=== PATIENT | male | born 2000 | race Two or more races ===

== ENCOUNTER 2025-03-03 16:56 | Emergency (ER) | payer SELFPAY ==
[2025-03-03] MEDS: methylPREDNISolone Sodium Succinate 40 MG/1 ML SDV IM ONE (17:37)
[2025-03-03] MEDS: diphenhydrAMINE 25 MG Cap PO ONE (17:37)
== END 2025-03-03 17:47 | disposition home or self-care (01) ==
LOC: MW.ED 16:56
DX: T78.40XA Allergy, unspecified, initial encounter (principal); L50.9 Urticaria, unspecified; F17.200 Nicotine dependence, unspecified, uncomplicated; Z79.899 Other long term (current) drug therapy
CPT/HCPCS: 96372; 99283; A9270; J2919; 99282